=== PATIENT | female | born 1980 | race Two or more races ===

== ENCOUNTER 2018-12-20 22:23 | Inpatient (IN) | payer OTHER ==
[2018-12-20] MEDS ORDERED: ONDANSETRON 4 MG/2 ML VIAL IVPB ONE (22:46)
[2018-12-20] MEDS ORDERED: SODIUM CHLORIDE 1,000 ML IV STA (22:46)
[2018-12-20] MEDS ORDERED: LORazepam 2 MG/ML SDV VIAL ONE (22:50)
[2018-12-20] MEDS ORDERED: ONDANSETRON 4 MG/2 ML VIAL ONE (22:50)
[2018-12-20] MEDS ORDERED: chlordiazePOXIDE HCL 25 MG CAPSULE PO ONE ×2 (22:58→23:03)
--- NOTE | 2018-12-20 23:01 | PDOC ---
Attending Attestation - Resident Resident Name: Sofia Banuelos - ED Attending Attestation I have performed the following: I have examined & evaluated the patient, The case was reviewed & discussed with the resident, I agree w/resident's findings & plan - HPI HPI: 12/20/18 23:45 see resident hpi 12/20/18 23:45 - Physicial Exam PE: 12/20/18 23:46 agree with resident exam - Medical Decision Making 12/20/18 23:46 38-year-old female with history of alcohol abuse, 1 L daily now with CIWAtremors requesting alcohol detox CIWA 21 patient given Ativan 2 mg IV as well as Librium 50 mg by mouth Patient will be held for medical detox, she is currently approaching 24 hours since last drink with alcohol level nearly 0
--- NOTE | 2018-12-20 23:03 | PDOC ---
History of Present Illness - General Chief Complaint: Alcohol intoxication Stated Complaint: WITHDRAWAL Time Seen by Provider: 12/20/18 22:40 History Source: Patient, Spouse Exam Limitations: No Limitations - History of Present Illness Initial Comments: 12/20/18 23:57 38yo F with PMH of alcohol dependence presenting to ED with complaints of withdrawal. Patient says she drinks about 1L of vodka daily and per , patient drinks all the time throughout the day. She has been binging for the past month or so. Patient wanted to detox and stopped drinking today around 4am. She says she feels anxious and nauseous. Endorses emesis x2 today. She has not had seizures from withdrawal before. Denies chest pain, sob, abdominal pain , diarrhea, fevers, headaches, changes in vision, syncope. PMD: PMH: see hpi PSH: none Meds: none Allergies; NKDA Social: alcohol use. Denies tobacco, cocaine, marijuana, opiate use. Past History - Past Medical History Allergies/Adverse Reactions: Allergies Allergy/AdvReac Type Severity Reaction Status Date / Time No Known Allergies Allergy Verified 12/20/18 22:30 Home Medications: Ambulatory Orders NK [No Known Home Medication] 12/20/18 Asthma: Yes COPD: No - Suicide/Smoking/Psychosocial Hx Smoking History: Never smoked Hx Alcohol Use: Yes (0400 today) Review of Systems - Review of Systems Constitutional: Yes: See HPI HEENTM: No: Symptoms Reported Respiratory: No: Symptoms reported Cardiac (ROS): No: Symptoms Reported ABD/GI: Yes: See HPI : No: Symptoms Reported Musculoskeletal: Yes: See HPI Integumentary: No: Symptoms Reported Neurological: Yes: See HPI *Physical Exam - Vital Signs Last Vital Signs Temp Pulse Resp BP Pulse Ox 97.9 F 105 H 24 H 176/98 H 95 12/20/18 22:30 12/20/18 22:30 12/20/18 22:30 12/20/18 22:30 12/20/18 22:30 - Physical Exam General Appearance: Yes: Nourished, Appropriately Dressed, Severe Distress HEENT: positive: EOMI, DWAINE, Other (no nystagmus. tongue fasiculations) Neck: positive: Trachea midline, Supple. negative: Lymphadenopathy (R), Lymphadenopathy (L) Respiratory/Chest: positive: Lungs Clear, Normal Breath Sounds. negative: Crackles, Rales, Dullness Cardiovascular: positive: Regular Rhythm, S1, S2, Tachycardia. negative: Edema , JVD, Murmur Vascular Pulses: Dorsalis-Pedis (R): 2+, Doralis-Pedis (L): 2+ Gastrointestinal/Abdominal: positive: Normal Bowel Sounds, Soft. negative: Guarding, Rebound Musculoskeletal: negative: CVA Tenderness Extremity: positive: Normal Capillary Refill Integumentary: positive: Normal Color, Dry, Warm Neurologic: positive: operations agent II-XII NML intact, Fully Oriented, Alert, Normal Mood/ Affect, Normal Response, Motor Strength 5/5, Other (tremors) ED Treatment Course - LABORATORY CBC & Chemistry Diagram: 12/20/18 23:00 12/20/18 23:00 - Medications Given in the ED: ED Medications Discontinued Medications Generic Name Dose Route Start Last Admin Trade Name Freq PRN Reason Stop Dose Admin Lorazepam 2 mg 12/20/18 22:46 12/20/18 22:54 Ativan Injection - IVPUSH 12/20/18 22:47 2 mg ONCE ONE Administration Ondansetron HCl 4 mg 12/20/18 22:46 12/20/18 22:54 Zofran Injection IVPB 12/20/18 22:47 4 mg ONCE ONE Administration Medical Decision Making - Medical Decision Making 12/20/18 23:53 38yo F with PMH of alcohol dependence presenting to ED with complaints of withdrawal. Patient says she drinks about 1L of vodka daily and per , patient drinks all the time throughout the day. She has been binging for the past month or so. Patient wanted to detox and stopped drinking today around 4am. She says she feels anxious and nauseous. Endorses emesis x2 today. She has not had seizures from withdrawal before. Denies chest pain, sob, abdominal pain , diarrhea, fevers, headaches, changes in vision, syncope. LMP 1w ago tachycardic, restless. fasicullations. Pt likely in withdrawal. CIWA 21 labs including alcohol, serum . will give fluids, Ativan and Librium. ekg, cxr. ekg: sinus tach at 104, pr 118, qtc 481. no lela or depressions. cxr: no infiltrates or consolidations. labs show elevated ALT>AST likely 2/2 alcohol use. will benefit from admission for alcohol withdrawal. signed out to night team, pending some lab values *DC/Admit/Observation/Transfer Diagnosis at time of Disposition: Alcohol withdrawal Qualifiers: Complication of substance-induced condition: with unspecified complication Qualified Code(s): F10.239 - Alcohol dependence with withdrawal, unspecified - Discharge Dispostion Condition at time of disposition: Good Decision to Admit order: Yes - Referrals - Patient Instructions - Post Discharge Activity CIWA Score Nausea/Vomitin-Int. Nausea w/Dry Heave Muscle Tremors: 5 Anxiety: 5 Agitation: 4-Moderately Restless Paroxysmal Sweats: 2 Orientation: 0-Oriented Tacttile Disturbances: 1-Very Mild Itch/Numbness Auditory Disturbances: 0-None Visual Disturbances: 0-None Headache: 0-None Present CIWA-Ar Total Score: 21 - Admission Criteria OASAS Guidelines: Admission for Medically Managed Detox: Requires at least one of the followin. CIWA greater than 12 2. Seizures within the past 24 hours 3. Delirium tremens within the past 24 hours 4. Hallucinations within the past 24 hours 5. Acute intervention needed for co occurring medical disorder 6. Acute intervention needed for co occurring psychiatric disorder 7. Severe withdrawal that cannot be handled at a lower level of care (continued vomiting, continued diarrhea, abnormal vital signs) requiring intravenous medication and/or fluids 8.
[2018-12-20 23:05] LABS: EOS % 2.6 % (0-4.5); HEMATOCRIT 44.8 % (32.4-45.2); HEMOGLOBIN 14.9 GM/dL (10.7-15.3); MCHC 33.3 g/dl (32.0-36.0); MEAN CELL VOLUME 90.2 fl (80-96); MEAN PLT VOLUME 8.4 fl (7.5-11.1); NEUT % 72.4 % (42.8-82.8); PLATELET COUNT 308 K/MM3 (134-434); RBC 4.97 M/mm3 (3.60-5.2); RDW 13.9 % (11.6-15.6); WHITE BLOOD COUNT 6.9 K/mm3 (4.0-10.0)
[2018-12-20 23:23] LABS: ALBUMIN 4.3 g/dl (3.4-5.0); BILIRUBIN,TOTAL 1.1 mg/dL (0.2-1); BLOOD UREA NITROGEN 6.6 mg/dL (7-18); CALCIUM 9.1 mg/dL (8.5-10.1); CREATININE 0.7 mg/dL (0.55-1.3); POTASSIUM 4.2 mmol/L (3.5-5.1); TOT PROT 7.8 g/dl (6.4-8.2)
[2018-12-20] MEDS ORDERED: chlordiazePOXIDE HCL 25 MG CAPSULE ONE (23:48)
--- NOTE | 2018-12-20 23:58 | PDOC ---
*Physical Exam - Vital Signs Last Vital Signs Temp Pulse Resp BP Pulse Ox 97.9 F 105 H 24 H 176/98 H 100 12/20/18 22:30 12/20/18 22:30 12/20/18 22:30 12/20/18 22:30 12/20/18 23:27 ED Treatment Course - LABORATORY CBC & Chemistry Diagram: 12/20/18 23:00 12/20/18 23:00 - ADDITIONAL ORDERS Additional order review: Laboratory Results 12/20/18 23:00 Sodium 137 Potassium 4.2 Chloride 99 Carbon Dioxide 27 Anion Gap 12 BUN 6.6 L Creatinine 0.7 Est GFR (CKD-EPI)AfAm 129.19 Est GFR (CKD-EPI)NonAf 111.47 Random Glucose 102 Calcium 9.1 Total Bilirubin 1.1 H AST 272 H ALT 302 H Alkaline Phosphatase 102 Total Protein 7.8 Albumin 4.3 Alcohol, Quantitative 4.6 12/20/18 23:00 RBC 4.97 MCV 90.2 MCHC 33.3 RDW 13.9 MPV 8.4 Neutrophils % 72.4 Lymphocytes % 19.0 Monocytes % 5.0 Eosinophils % 2.6 Basophils % 1.0 - RADIOLOGY Radiology Studies Ordered: Category Date Time Status CHEST X-RAY PORTABLE* [RAD] Stat Radiology 12/20/18 23:06 Taken - Medications Given in the ED: ED Medications Discontinued Medications Generic Name Dose Route Start Last Admin Trade Name Freq PRN Reason Stop Dose Admin Chlordiazepoxide HCl 25 mg 12/20/18 22:58 12/20/18 23:55 Librium - PO 12/20/18 22:59 Not Given ONCE ONE Chlordiazepoxide HCl 50 mg 12/20/18 23:03 12/20/18 23:55 Librium - PO 12/20/18 23:04 50 mg ONCE ONE Administration Sodium Chloride 1,000 mls @ 1,000 mls/hr 12/20/18 22:46 12/20/18 22:54 Normal Saline - IV 12/20/18 23:45 1,000 mls/hr ASDIR STA Administration Lorazepam 2 mg 12/20/18 22:46 12/20/18 22:54 Ativan Injection - IVPUSH 12/20/18 22:47 2 mg ONCE ONE Administration Ondansetron HCl 4 mg 12/20/18 22:46 12/20/18 22:54 Zofran Injection IVPB 12/20/18 22:47 4 mg ONCE ONE Administration Medical Decision Making - Medical Decision Making 12/20/18 23:[address] Banuelos for further evaluation. Patient is a 38 yo female w / pmh of alcohol abuse who presents in withdrawal with CIWA score of 21. Patient s/p ativan and PO librium. Patient will be admitted for medical stabilization. Currently pending laboratory evaluation for admit. 12/21/18 00:26 Laboratory evaluation significant for elevated liver enzymes as below. Patient will be admitted for medical management of withdrawal. 12/21/18 01:03 Discussed patient with inpatient team who requested medical floor for further evaluation. Patient admitted. Laboratory Results - last 24 hr 12/20/18 12/20/18 12/20/18 23:00 23:00 23:00 WBC 6.9 RBC 4.97 Hgb 14.9 Hct 44.8 MCV 90.2 MCH 30.0 MCHC 33.3 RDW 13.9 Plt Count 308 MPV 8.4 Absolute Neuts (auto) 5.0 Neutrophils % 72.4 Lymphocytes % 19.0 Monocytes % 5.0 Eosinophils % 2.6 Basophils % 1.0 Nucleated RBC % 0 Sodium 137 Potassium 4.2 Chloride 99 Carbon Dioxide 27 Anion Gap 12 BUN 6.6 L Creatinine 0.7 Est GFR (CKD-EPI)AfAm 129.19 Est GFR (CKD-EPI)NonAf 111.47 Random Glucose 102 Calcium 9.1 Total Bilirubin 1.1 H AST 272 H ALT 302 H Alkaline Phosphatase 102 Total Protein 7.8 Albumin 4.3 Serum , Qual Negative Alcohol, Quantitative 4.6 *DC/Admit/Observation/Transfer Diagnosis at time of Disposition: Alcohol withdrawal Qualifiers: Complication of substance-induced condition: with unspecified complication Qualified Code(s): F10.239 - Alcohol dependence with withdrawal, unspecified - Discharge Dispostion Condition at time of disposition: Good Decision to Admit order: Yes - Referrals - Patient Instructions - Post Discharge Activity
[2018-12-21] MEDS ORDERED: SODIUM CHLORIDE 1,000 ML IV SCH (01:00)
[2018-12-21] MEDS ORDERED: LORazepam 2 MG/ML SDV VIAL ONE (01:25)
[2018-12-21] MEDS ORDERED: LORazepam 1 MG TABLET PO PRN ×3 (02:06→06:54)
[2018-12-21] MEDS ORDERED: FOLIC ACID INJECTION - 1 MG, THIAMINE HCL 100 MG, MULTIVIT INJECTION ADULT 10 ML in SOD... IVPB ONE (02:07)
--- NOTE | 2018-12-21 02:12 | HP ---
CHIEF COMPLAINT: EtOH WD PCP: None HISTORY OF PRESENT ILLNESS: 38 y.o. F PMH EtOH abuse and depression presenting for EtOH withdrawal. The patient has been drinking heavily for the past 5 months but has increased alcohol intake to 1L vodka daily over the past month. She completed detox in the past, 2 yrs ago @ [facility] but has since relapsed. The patient is willing to quit drinking and willing to try detox again at [facility]. Her last drink prior to admission was around 4am yesterday. Pt endorses nausea and 2x NBNB emesis in triage. Currently she says she feels anxious, is "seeing ghosts" and hearing a soft ringing in her ears. She also endorses b/l LE foot parasthesias. She says that she has lost consciousness due to drinking in the past but did not lose consciousness during this current episode of drinking. On ROS denies CP/ SOB/ headaches/ fevers/ seizures/ heat or cold intolerances/ myalgias. ER course was notable for: (1) BP 176/98; tachy to 105. EKG shows sinus tachy. Repeat BP 125/80. Tachypnic. 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 Lives at home with , twin sons, and her parents Smoking: Denies Alcohol:Denies Drugs: Denies Allergies No Known Allergies Allergy (Verified 12/20/18 22:30) Family Hx: Mother- HTN HOME MEDICATIONS: Home Medications Medication Instructions Recorded NK [No Known Home Medication] 12/20/18 REVIEW OF SYSTEMS CONSTITUTIONAL: Absent: fever, chills, diaphoresis, generalized weakness, malaise, loss of appetite, weight change HEENT: Absent: rhinorrhea, nasal congestion, throat pain, throat swelling, difficulty swallowing, mouth swelling, ear pain, eye pain, visual changes CARDIOVASCULAR: Absent: chest pain, syncope, palpitations, irregular heart rate, lightheadedness , peripheral edema RESPIRATORY: Absent: cough, shortness of breath, dyspnea with exertion, orthopnea, wheezing, stridor, hemoptysis GASTROINTESTINAL: Absent: abdominal pain, abdominal distension, nausea, vomiting, diarrhea, constipation, melena, hematochezia GENITOURINARY: Absent: dysuria, frequency, urgency, hesitancy, hematuria, flank pain, genital pain MUSCULOSKELETAL: Absent: myalgia, arthralgia, joint swelling, back pain, neck pain SKIN: Absent: rash, itching, pallor HEMATOLOGIC/IMMUNOLOGIC: Absent: easy bleeding, easy bruising, lymphadenopathy, frequent infections ENDOCRINE: Absent: unexplained weight gain, unexplained weight loss, heat intolerance, cold intolerance NEUROLOGIC: Absent: headache, focal weakness or paresthesias, dizziness, unsteady gait, seizure, mental status changes, bladder or bowel incontinence PSYCHIATRIC: Absent: anxiety, depression, suicidal or homicidal ideation, hallucinations. PHYSICAL EXAMINATION Vital Signs - 24 hr 12/20/18 12/20/18 12/21/18 22:30 23:27 01:22 Temperature 97.9 F Pulse Rate 105 H Pulse Rate [ 120 H Apical] Respiratory 24 H 18 Rate Blood Pressure 176/98 H Blood Pressure 134/74 [Right Arm] O2 Sat by Pulse 95 100 99 Oximetry (%) GENERAL: AOx3. Mildly agitated, tremulous HEENT: + tongue fasciculations. MMM. No scleral icterus. LUNGS: CTABL no wheezing/ crackling. No incr work of breathing. HEART: Regular rate and rhythm, normal S1 and S2 without murmurs ABDOMEN: Soft NTND, + BS. No hepatomegaly. UPPER EXTREMITIES: 2+ pulses, warm, well-perfused. No cyanosis. No clubbing. No peripheral edema. LOWER EXTREMITIES: 2+ pulses, warm, well-perfused. No calf tenderness. No peripheral edema. NEUROLOGICAL: + tremors @ rest, incr w/ outstretched hands. PSYCHIATRIC: Endorses seeing ghosts. Ringing present in ears. Denies SI/ HI. SKIN: No rashes or lesions noted. Laboratory Results - last 24 hr 12/20/18 12/20/18 12/20/18 23:00 23:00 23:00 WBC 6.9 RBC 4.97 Hgb 14.9 Hct 44.8 MCV 90.2 MCH 30.0 MCHC 33.3 RDW 13.9 Plt Count 308 MPV 8.4 Absolute Neuts (auto) 5.0 Neutrophils % 72.4 Lymphocytes % 19.0 Monocytes % 5.0 Eosinophils % 2.6 Basophils % 1.0 Nucleated RBC % 0 Sodium 137 Potassium 4.2 Chloride 99 Carbon Dioxide 27 Anion Gap 12 BUN 6.6 L Creatinine 0.7 Est GFR (CKD-EPI)AfAm 129.19 Est GFR (CKD-EPI)NonAf 111.47 Random Glucose 102 Calcium 9.1 Total Bilirubin 1.1 H AST 272 H ALT 302 H Alkaline Phosphatase 102 Total Protein 7.8 Albumin 4.3 Serum , Qual Negative Alcohol, Quantitative 4.6 ASSESSMENT/PLAN: 38 y.o. F PMH EtOH abuse and depression presenting for EtOH withdrawal. #EtOH withdrawal -CIWA 21 on admission -C/w IVF -Librium protocol initiated -Zofran PRN -Folic acid/ thiamine -F/u toxicology report -Holding off psych consult at this time; pt denies suicidal thoughts #Transaminitis likely 2/2 alcoholic hepatitis -AST 272/ ALT 302 -F/u RUQ U/S -F/u coags; Tbili 1.1, calculate maddreys discriminant function; will hold off on steroids at this time. -F/u hepatic panel -neg test #Depression -Pt says she took antidepression medications in the past, not currently -Pt agreeable to [facility] detox -F/u psych outpatient- pt needs psychiatrist recommendation #DVT PPX -LVX 40mg SQ #FEN -NS @100mL/ hr -Trend lytes -NPO #Dispo Admit to tele Visit type - Emergency Visit Emergency Visit: Yes ED Registration Date: 12/21/18 Care time: The patient presented to the Emergency Department on the above date and was hospitalized for further evaluation of their emergent condition. - New Patient This patient is new to me today: Yes Date on this admission: 12/21/18 - Critical Care Critical Care patient: No ATTENDING PHYSICIAN STATEMENT I saw and evaluated the patient. I reviewed the resident's note and discussed the case with the resident. I agree with the resident's findings and plan as documented. SUBJECTIVE: OBJECTIVE: ASSESSMENT AND PLAN:
--- NOTE | 2018-12-21 02:13 | PN ---
Teaching Attending Note Name of Resident: Ainsley Vasquez ATTENDING PHYSICIAN STATEMENT I saw and evaluated the patient. I reviewed the resident's note and discussed the case with the resident. I agree with the resident's findings and plan as documented. SUBJECTIVE: 38 yo female w/ pmh of alcohol abuse brought in with , for etoh withdrawal, CIWA score in ER was 21. Reports drinking 1L vodka/day for 2 months , prior to that drank less but consistently for 5 years. Last drink last night. Reports recent job loss which made her depressed and drink more. Patient was previously on Trazadone and Prozac for depression but stopped those meds on her own about a year ago. OBJECTIVE: Last Vital Signs Temp Pulse Resp BP Pulse Ox 97.9 F 105 H 20 125/86 96 12/20/18 22:30 12/21/18 01:39 12/21/18 01:39 12/21/18 01:39 12/21/18 01:39 gen- anxious, nontremulous heent- moist mucous membranes neck -no masses cv-s1+s2+tachy chest clear ext -not tremulous Abnormal Lab Results 12/20/18 23:00 BUN 6.6 L Total Bilirubin 1.1 H AST 272 H ALT 302 H imaging - reviewed ASSESSMENT AND PLAN: #etoh withdrawal - high CIWA score, unsafe for transfer to [facility] -telemetry as per nurse supervisor composing room -ciwa score -iv fluid hydration -banana bag -thiamine -folate -check mg, replace if low -lorazepam detox protocol with IV prn order -npo for now -urine toxicology screen -[facility] referral upon d/c #transaminitis likely from etoh abuse, mild bilirubinemia -abdomen u/s -avoid hepatotoxins -repeat hepatic panel #major depression -psych eval for restarting antidepressants #DVT ppx -scds
[2018-12-21] MEDS ORDERED: LORazepam 2 MG/ML SDV VIAL IVPUSH PRN ×2 (02:19→05:40)
[2018-12-21 06:40] VITALS: TEMP 98.5; BMI 34.5
[2018-12-21] MEDS ORDERED: ALBUTEROL SO4 8 GM HFA INHALER IH PRN (08:01)
[2018-12-21 08:08] LABS: HEMATOCRIT 37.3 % (32.4-45.2); HEMOGLOBIN 12.6 GM/dL (10.7-15.3); MCH 30.6 pg (25.7-33.7); MCHC 33.8 g/dl (32.0-36.0); MEAN CELL VOLUME 90.5 fl (80-96); MEAN PLT VOLUME 8.2 fl (7.5-11.1); PLATELET COUNT 232 K/MM3 (134-434); RBC 4.12 M/mm3 (3.60-5.2); RDW 13.8 % (11.6-15.6); WHITE BLOOD COUNT 5.2 K/mm3 (4.0-10.0)
[2018-12-21 08:21] LABS: INR 1.03 (0.83-1.09); PROTHROMBIN TIME (PATIENT) 12.2 SEC (9.7-13.0)
[2018-12-21 08:35] LABS: ALBUMIN 3.4 g/dl (3.4-5.0); BILIRUBIN,TOTAL 1.8 mg/dL (0.2-1); BLOOD UREA NITROGEN 8.1 mg/dL (7-18); CALCIUM 7.5 mg/dL (8.5-10.1); CREATININE 0.6 mg/dL (0.55-1.3); PHOSPHOROUS 3.2 mg/dL (2.5-4.9); POTASSIUM 3.6 mmol/L (3.5-5.1)
[2018-12-21] MEDS ORDERED: ENOXAPARIN NA (PORCINE) 40 MG/0.4 ML DISP.SYRIN SQ SCH (10:00)
[2018-12-21] MEDS ORDERED: PATIENT'S OWN MEDICATION (NON-FORMULARY) (Fluticasone Propionate [Flovent Diskus] 2 PUFF) IH SCH ×2 (10:00)
[2018-12-21] MEDS ORDERED: THIAMINE HCL 100 MG TABLET (FP) PO SCH (10:00)
[2018-12-21] MEDS ORDERED: FOLIC ACID 1 MG TABLET (FP) PO SCH (10:00)
[2018-12-21 10:16] VITALS: BP 112/71; PULSE 88
--- NOTE | 2018-12-21 10:58 | EKG ---
Test Reason : Blood Pressure : / mmHG Vent. Rate : 104 BPM Atrial Rate : 104 BPM P-R Int : 118 ms QRS Dur : 084 ms QT Int : 366 ms P-R-T Axes : 037 045 008 degrees QTc Int : 481 ms SINUS TACHYCARDIA OTHERWISE NORMAL ECG NO PREVIOUS ECGS AVAILABLE Confirmed by Baldo Montanez ([id number]) on 12/21/2018 10:57:48 AM Referred By: Confirmed By:Baldo Montanez
--- NOTE | 2018-12-21 14:16 | DS ---
Physical Exam: SUBJECTIVE: Pt without symptoms currently. 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 Pt wishes to go home and feels back to her baseline. OBJECTIVE: Vital Signs Period Temp Pulse Resp BP Sys/Calderon Pulse Ox Last 24 Hr 97.9 F-99.2 F 88-120 18-24 112-176/71-98 95-100 PHYSICAL EXAM Gen: NAD, alert, oriented x3, nontremulous, not anxious HEENT: NC/AT< EOMI, JPEARL, sclera anicteric, MMM LUNGS: CTA b/l on RA no accessory muscle use CARDS: RRR with no murmur appreciated ABD: Soft, NT/ND, normoactive BS, no hepatomegaly or hepatic nodularity EXT: 2+ DP pulses no edema peripherally SKIN: No jaundice appreciated. No rashes or telangiectasias appreciated Neuro: Nonvocal exam with strength and sensation intact. PSYCH: Normal mood and affect LABS Laboratory Results - last 24 hr 12/20/18 12/20/18 12/20/18 23:00 23:00 23:00 WBC 6.9 RBC 4.97 Hgb 14.9 Hct 44.8 MCV 90.2 MCH 30.0 MCHC 33.3 RDW 13.9 Plt Count 308 MPV 8.4 Absolute Neuts (auto) 5.0 Neutrophils % 72.4 Lymphocytes % 19.0 Monocytes % 5.0 Eosinophils % 2.6 Basophils % 1.0 Nucleated RBC % 0 PT with INR INR Sodium 137 Potassium 4.2 Chloride 99 Carbon Dioxide 27 Anion Gap 12 BUN 6.6 L Creatinine 0.7 Est GFR (CKD-EPI)AfAm 129.19 Est GFR (CKD-EPI)NonAf 111.47 Random Glucose 102 Calcium 9.1 Phosphorus Magnesium Total Bilirubin 1.1 H AST 272 H ALT 302 H Alkaline Phosphatase 102 Total Protein 7.8 Albumin 4.3 Serum , Qual Negative Acetaminophen Alcohol, Quantitative 4.6 12/21/18 12/21/18 12/21/18 07:45 07:45 07:45 WBC 5.2 RBC 4.12 Hgb 12.6 Hct 37.3 D MCV 90.5 MCH 30.6 MCHC 33.8 RDW 13.8 Plt Count 232 D MPV 8.2 Absolute Neuts (auto) Neutrophils % Lymphocytes % Monocytes % Eosinophils % Basophils % Nucleated RBC % PT with INR 12.20 INR 1.03 Sodium 139 Potassium 3.6 Chloride 105 Carbon Dioxide 27 Anion Gap 8 BUN 8.1 Creatinine 0.6 Est GFR (CKD-EPI)AfAm 135.91 Est GFR (CKD-EPI)NonAf 117.26 Random Glucose 86 Calcium 7.5 L Phosphorus 3.2 Magnesium 2.0 Total Bilirubin 1.8 H AST 151 H ALT 208 H Alkaline Phosphatase 77 Total Protein 6.0 L Albumin 3.4 Serum , Qual Acetaminophen Alcohol, Quantitative 12/21/18 09:30 WBC RBC Hgb Hct MCV MCH MCHC RDW Plt Count MPV Absolute Neuts (auto) Neutrophils % Lymphocytes % Monocytes % Eosinophils % Basophils % Nucleated RBC % PT with INR INR Sodium Potassium Chloride Carbon Dioxide Anion Gap BUN Creatinine Est GFR (CKD-EPI)AfAm Est GFR (CKD-EPI)NonAf Random Glucose Calcium Phosphorus Magnesium Total Bilirubin AST ALT Alkaline Phosphatase Total Protein Albumin Serum , Qual Acetaminophen --noresult-- Alcohol, Quantitative HOSPITAL COURSE: Date of Admission:12/21/18 Date of Discharge: 12/21/18 Pt was admitted for alcohol withdrawal signs and was treated with Ativan protocol throughout the night due to elevated transamases. During her stay in the day patient refused continued detox and [facility] inpatient detox referral and wished to go home. Pt reports she has a lot of other commitments in her life and understands the risks of leaving without recommended treatment. Pt understands we can only send her on a limited supply of medications. She understands and acknowledges she will not drink while on these medications and not drive or operate machinery. Referral to [facility] outpatient rehab and detox were provided for her. Pt's transaminases were downtrending on repeat and she knows this must be repeated by her outpatient physician: Hepatic Panel Total Bilirubin 1.8 mg/dL (0.2-1) H 12/21/18 07:45 AST 151 U/L (15-37) H 12/21/18 07:45 ALT 208 U/L (13-61) H 12/21/18 07:45 Alkaline Phosphatase 77 U/L (45-117) 12/21/18 07:45 Albumin 3.4 g/dl (3.4-5.0) 12/21/18 07:45 Otherwise patient is leaving in stable condition at this time and understands to follow-up with her primary care physician and rehab/detox. Minutes to complete discharge: 35 Discharge Summary Reason For Visit: ALCOHOL WITHDRAWL SYNDROME Condition: Good - Instructions Diet, Activity, Other Instructions: You were here due to your alcohol detox. If you want to pursue detox and rehab please go to [facility]. We have provided referrals and information for [facility] if you want to stop drinking. Please take Ativan 1mg by mouth if you develop signs of withdrawal: tremor, hallucinations, irritability, anxiety, night sweats. Do not drive or operate any machinery while taking this medication as it can impair you. Referrals: Martin Atkinson MD [Staff Physician] - 12/24/18 Yobani Amador MD [Staff Physician] - 1 Month (For pulmonary function tests) Shayy Mulligan MD [Staff Physician] - Theresa Linton DO [Staff Physician] - Disposition: HOME - Home Medications Comprehensive Discharge Medication List: Ambulatory Orders Albuterol Sulfate Inhaler - [Ventolin HFA Inhaler -] 2 puff IH DAILY PRN Fluticasone Propionate [Flovent Diskus] 2 puff IH DAILY 12/21/18 LORazepam [Ativan] 1 mg PO Q6H PRN #5 tablet MDD 4 tabs 12/21/18 Thiamine HCl [Vitamin B1 -] 100 mg PO DAILY tablet 12/21/18 This patient is new to me today: Yes Date on this admission: 12/21/18 Emergency Visit: Yes ED Registration Date: 12/21/18 Care time: The patient presented to the Emergency Department on the above date and was hospitalized for further evaluation of their emergent condition. Critical Care patient: No - Discharge Referral Referred to [facility] Med [facility] No
[2018-12-22] MEDS ORDERED: LORazepam 1 MG TABLET PO SCH ×3 (05:00)
[2018-12-23] MEDS ORDERED: LORazepam 0.5 MG TABLET PO PRN ×3
[2018-12-23] MEDS ORDERED: LORazepam 0.5 MG TABLET PO SCH ×3 (05:00)
[2018-12-24] MEDS ORDERED: LORazepam 0.5 MG TABLET PO ONE ×3 (05:00)
== END 2018-12-21 13:41 | disposition home or self-care (01) | DRG 775 ==
LOC: JER 22:23 → JERBED 12-21 00:06 → J4W 12-21 06:01
PROVIDERS: ADMIT Internal Medicine; ATTEND Internal Medicine
PROC: HZ2ZZZZ Detoxification Services for Substance Abuse Treatment (ICD-10-PCS; principal; 2018-12-21)
DX: F10.239 Alcohol dependence with withdrawal, unspecified (principal); R74.0 Nonspecific elevation of levels of transaminase and lactic acid dehydrogenase [LDH]; E80.6 Other disorders of bilirubin metabolism; R00.0 Tachycardia, unspecified; R45.1 Restlessness and agitation; R11.2 Nausea with vomiting, unspecified; R44.1 Visual hallucinations; R06.82 Tachypnea, not elsewhere classified; F32.9 Major depressive disorder, single episode, unspecified
CPT/HCPCS: 36415; 71045-TC-FY; 76700-TC; 80053; 80074; 80307; 83735; 84100; 84703; 85025; 85027; 85610; 93005; 93010; 99285-25; J7030